=== PATIENT | male | born 2005 | race Caucasian/White ===

== ENCOUNTER 2023-06-19 16:21 | Outpatient (CLI) | payer OTHER, SELFPAY | END 2023-06-19 16:22 | disposition home or self-care (01) | PROVIDERS: PCP Family Medicine; Visit Provider Family Medicine | DX: R19.7 Diarrhea, unspecified (principal); R11.0 Nausea; R63.4 Abnormal weight loss | CPT/HCPCS: 80053; 84443; 86140; 86364 ==

== ENCOUNTER 2024-11-25 21:50 | Outpatient (CLI) | payer OTHER, SELFPAY | END 2024-11-25 21:51 | disposition home or self-care (01) | LOC: AMB 11-26 15:21 | PROVIDERS: PCP Family Medicine; Visit Provider Family Medicine | DX: R44.3 Hallucinations, unspecified (principal); T40.711A Poisoning by cannabis, accidental (unintentional), initial encounter; Y92.009 Unspecified place in unspecified non-institutional (private) residence as the place of occurrence of the external cause | CPT/HCPCS: A0425; A0427 ==

== ENCOUNTER 2024-11-25 22:31 | Emergency (ER) | payer OTHER, SELFPAY ==
[2024-11-25 22:36] VITALS: BP 147/77; PULSE 94; RESP 18; TEMP 36.7; O2SAT 98; BMI 20.9
--- NOTE | 2024-11-25 22:38 | ED.OVERDOSE ---
HPI - Overdose General Time Seen by Provider: 22:39 Date Seen: 11/25/24 Chief Complaint: Overdose Stated Complaint: Overdose Time Seen by Provider: 11/25/24 22:37 Source: patient, EMS, RN notes reviewed and old records reviewed Mode of arrival: EMS Limitations: no limitations History of Present Illness HPI Narrative: 19-year-old who presents today with concern for ingestion. Patient took a box of Shroomfuzed gummies (nootropic mushrooms) and comes in with paranoia. He has no other complaints this time, called EMS because he was scared to be at home. He says he is feeling little better now and just wants to rest. Per EMS, Poison Control indicated that patient should be watched for agitation, Ativan as needed. Related Data Home Medications ?Medication ?Instructions ?Recorded ?Confirmed No Known Home Medications 12/19/23 12/26/23 Allergies Allergy/AdvReac Type Severity Reaction Status Date / Time amoxicillin (From Augmentin) AdvReac Unknown Unknown Verified 12/26/23 09:20 clavulanic acid (From AdvReac Unknown Unknown Verified 12/26/23 09:20 Augmentin) [facility] Surgical History (Updated 12/26/23 @ 09:21 by Claudia Bowman ~ [facility], [facility] H/O hand surgery ?Z98.890 - Other specified postprocedural states (ICD-10) Social History (Reviewed 12/26/23 @ 09:21 by Claudia Bowman ~ [facility], [facility]) Smoking Status: Never smoker Exam Narrative: Exam Narrative: General: Well-developed and well-nourished, no acute distress Head: Atraumatic and normocephalic Eyes: Pupils are dilated and minimally reactive ENT: External nose and ears are normal, posterior pharynx without erythema or exudate Neck: No midline cervical tenderness, full spontaneous range of motion the neck, trachea midline, no adenopathy Heart: Regular rate and rhythm no murmurs or thrills Lungs: Clear to auscultation bilaterally without wheezes or crackles Abdomen: Soft, nontender, nondistended with active bowel sounds Musculoskeletal: No tenderness, deformity, or edema Neurologic: Awake, alert, and oriented x3, no gross focal neurologic deficits, cranial nerves intact as tested, slightly slow to answer questions Psych: Mood and affect are appropriate Skin: No rashes Const: Vital Signs, click to edit/add: Vital Signs - 24 hr 11/25/24 22:36 Temperature 98.1 F Pulse Rate [Pulse Oximeter] 94 Respiratory Rate 18 Blood Pressure [Ri ght Upper Arm] 147/77 H Pulse Oximetry 98 Oxygen Delivery Me thod Room Air Course Course ED Course: Reviewed most recent primary care visit from November 2023 which was follow-up for hernia, at that time it was felt this represented an abdominal muscle strain, conservative treatment with rest and [id number] medications. Patient presents today with ingestion of ?shroom gummies and complaints of paranoia and feeling unsafe I am self at home. The time of my exam, patient is cooperative, alert, dilated pupils although slow to answer questions. He will be allowed to rest in the emergency department and anticipate discharge Reevaluation(s) Time of Reevaluation #1: 23:00 Reevaluation #1: Patient's mom is here and is comfortable taking him home, patient is comfortable to go. Suggest rest, minimal stimulation including noise, flashing lights. Vital Signs Vital signs: Initial Vital Signs Temperature 98.1 F 11/25/24 22:36 Temperature Source Temporal Artery Scan 11/25/24 22:36 Pulse Rate 94 11/25/24 22:36 Pulse Rhythm Regular 11/25/24 22:36 Respiratory Rate 18 11/25/24 22:36 Blood Pressure 147/77 H 11/25/24 22:36 Blood Pressure Mean 100 11/25/24 22:36 Blood Pressure Position Sitting 11/25/24 22:36 Pulse Oximetry 98 11/25/24 22:36 Oxygen Delivery Method Room Air 11/25/24 22:36 Vital Signs Temperature 98.1 F 11/25/24 22:36 Pulse Rate 94 11/25/24 22:36 Respiratory Rate 18 11/25/24 22:36 Blood Pressure 147/77 H 11/25/24 22:36 Pulse Oximetry 98 11/25/24 22:36 Oxygen Delivery Method Room Air 11/25/24 22:36 Temperature 98.1 F 11/25/24 22:36 Pulse Rate 94 11/25/24 22:36 Respiratory Rate 18 11/25/24 22:36 Blood Pressure 147/77 H 11/25/24 22:36 Pulse Oximetry 98 11/25/24 22:36 Oxygen Delivery Method Room Air 11/25/24 22:36 Discharge Plan Discharge Clinical Impression: Mushrooms causing toxic effect, Substance-induced disorder Instructions: Polysubstance Use Disorder (ED) Additional Instructions: Do not use the drink alcohol or use other drugs including cannabis or shrooms until you feel back to normal, at least 24 hours Prescriptions: No Action No Known Home Medications Follow Up/Referrals: Elver Yost MD [Primary Care Provider] -
== END 2024-11-25 23:04 | disposition home or self-care (01) ==
LOC: ED 23:02
PROVIDERS: Emergency Provider Family Medicine; PCP Family Medicine
DX: T62.0X4A Toxic effect of ingested mushrooms, undetermined, initial encounter (principal); F22 Delusional disorders
CPT/HCPCS: 99283